=== PATIENT | male | born 1960 | race Caucasian/White ===

== ENCOUNTER 2021-08-07 21:17 | Emergency (ER) | payer BC, OTHER ==
[2021-08-07 21:38] VITALS: BP 133/82; PULSE 50; TEMP 98.6; BMI 29.8
[2021-08-07] MEDS ORDERED: SILVER SULFADIAZINE 1% TOP CREAM 50 GM JAR TP ONE ×2 (21:55→22:05)
[2021-08-07] MEDS ORDERED: DIPHTH,PERTUSS(ACELL),TET 0.5 ML DISP.SYRIN IM ONE ×2 (22:04→22:06)
[2021-08-07] MEDS ORDERED: KETOROLAC TROMETHAMINE 60 MG/2 ML VIAL IM ONE (22:05)
[2021-08-07] MEDS ORDERED: KETOROLAC TROMETHAMINE 60 MG/2 ML VIAL ONE (22:06)
== END 2021-08-07 22:23 | disposition home or self-care (01) ==
LOC: FER 21:17
PROC: 3E0233Z Introduction of Anti-inflammatory into Muscle, Percutaneous Approach (ICD-10-PCS; principal; 2021-08-07)
PROC: 3E0234Z Introduction of Serum, Toxoid and Vaccine into Muscle, Percutaneous Approach (ICD-10-PCS; 2021-08-07)
DX: T24.031A Burn of unspecified degree of right lower leg, initial encounter (principal); X12.XXXA Contact with other hot fluids, initial encounter; Y92.9 Unspecified place or not applicable
CPT/HCPCS: 90715; 99283-25

== ENCOUNTER 2022-04-19 10:49 | Day surgery (SDC) | payer BC ==
[2022-04-15 10:50] VITALS: BMI 29.8
[2022-04-19 12:31] VITALS: TEMP 98
[2022-04-19 12:35] VITALS: BP 121/77; PULSE 58
== END 2022-04-19 13:07 | disposition home or self-care (01) ==
LOC: FASU-ENDO 10:49
PROVIDERS: ATTEND Internal Medicine Gastroenterology
PROC: 0DJD8ZZ Inspection of Lower Intestinal Tract, Via Natural or Artificial Opening Endoscopic (ICD-10-PCS; principal; 2022-04-19 11:44)
DX: Z12.11 Encounter for screening for malignant neoplasm of colon (principal)

== ENCOUNTER 2024-04-28 17:13 | Emergency (ER) | payer BC ==
[2024-04-28 17:26] VITALS: BMI 26.4
[2024-04-28 17:33] VITALS: BP 121/87; PULSE 55; RESP 18; TEMP 98
[2024-04-28 19:21] LABS: HEMATOCRIT 43.2 % (35.4-49); MCH 32.4 pg (25.7-33.7); MCHC 34.7 g/dl (32.0-35.9); MEAN CELL VOLUME 93.6 fl (80-96); MEAN PLT VOLUME 8.6 fl (7.5-11.1); PLATELET COUNT 177.5 10^3/uL (134-434); RBC 4.62 10^6/uL (4.00-5.60); RDW 13.1 % (11.9-15.9); WHITE BLOOD COUNT 8.1 10^3/uL (4.0-10.8)
[2024-04-28 19:29] LABS: PLATELET ESTIMATE ADEQUATE
[2024-04-28 19:31] LABS: ALBUMIN 4.6 g/dl (3.4-5.0); ALK PHOS 65 U/L (45-117); ANION GAP 9 mmol/L (4-13); BILIRUBIN,TOTAL 0.8 mg/dl (0.2-1); CALCIUM 9.7 mg/dl (8.5-10.1); CHLORIDE 103 mmol/L (98-107); CO2 28 mmol/L (21-32); GLUCOSE,RANDOM 113 mg/dl (74-106); POTASSIUM 3.8 mmol/L (3.5-5.1); SGOT/AST 18 U/L (15-37); SGPT/ALT 17 U/L (7-52); SODIUM 140 mmol/L (136-145); TOT PROT 6.6 g/dl (6.4-8.2)
== END 2024-04-28 20:05 | disposition home or self-care (01) ==
LOC: FER 17:13
DX: R53.1 Weakness (principal); T48.1X5A Adverse effect of skeletal muscle relaxants [neuromuscular blocking agents], initial encounter; T39.315A Adverse effect of propionic acid derivatives, initial encounter
CPT/HCPCS: 36415; 80053; 85027; 99283-25